=== PATIENT | female | born 1990 | race Caucasian/White ===

== ENCOUNTER 2018-09-14 16:18 | Emergency (ER) | payer SELFPAY ==
[2018-09-14 16:29] VITALS: BP 138/75
[2018-09-14] MEDS ORDERED: AZITHROMYCIN 250 MG TABLET PO ONE (16:36)
[2018-09-14] MEDS ORDERED: CEFTRIAXONE INJ 250 MG VIAL IM ONE (16:36)
[2018-09-14] MEDS ORDERED: LIDOCAINE 1% INJ-PF (10 MG/ML) 30 ML SDV INJ ONE (16:36)
--- NOTE | 2018-09-14 17:00 | ER Document Report ---
HPI - HPI Time Seen by Provider: 09/14/18 16:39 Pain Level: 0 Notes: Patient is a 28-year-old female no significant past medical history presents to the emergency department complaining of possible gonorrhea as her partner tested positive yesterday for it. She has no other concerns or complaints. She is eating and drink without difficult he. She is urinating normally and having normal bowel movements. She has not noticed any other vaginal discharge, odor, or bleeding. Denies and does not want tested. Denies drug allergies. No other concerns or complaints. Denies any headache, fever, URI, sore throat, chest pain, palpitations, syncope, cough, shortness of breath, wheeze, dyspnea, abdominal pain, nausea/vomiting/diarrhea, urinary retention, dysuria, hematuria, or rash. - ROS Systems Reviewed and Negative: Yes All other systems reviewed and negative - REPRODUCTIVE Reproductive: DENIES: : Past Medical History - Social History Smoking Status: Never Smoker Family History: Reviewed & Not Pertinent Vertical Provider Document - CONSTITUTIONAL Agree With Documented VS: Yes Notes: PHYSICAL EXAMINATION: GENERAL: Well-appearing, well-nourished and in no acute distress. LUNGS: Breath sounds clear to auscultation bilaterally and equal. No wheezes rales or rhonchi. HEART: Regular rate and rhythm without murmurs, rubs, gallops. ABDOMEN: Soft, nontender, nondistended abdomen. No guarding, no rebound. No masses appreciated. Normal bowel sounds present. No CVA tenderness bilaterally. : deferred. pt self-swabbed Musculoskeletal: FROM to passive/active. Strength 5+/5. Extremities: No cyanosis, clubbing, or edema b/l. Peripheral pulses 2+. Capillary refill less than 3 seconds. NEUROLOGICAL: Normal speech, normal gait. Normal sensory, motor exams PSYCH: Normal mood, normal affect. SKIN: Warm, Dry, normal turgor, no rashes or lesions noted. - INFECTION CONTROL TRAVEL OUTSIDE OF THE [place] IN LAST 30 DAYS: No Course - Re-evaluation Re-evalutation: 09/14/18 16:57 Patient is an afebrile, well-hydrated 28-year-old female who presents to the ED with possible gonorrhea with known exposure. Vitals are acceptable. PE is otherwise unremarkable. Patient's abdomen is soft nontender. Chlamydia gonorrhea tests are pending. Patient was given Rocephin and Zithromax. No further labs or imaging warranted at this time. Stressed the importance of follow-up with the health department for further evaluation and management. Recheck with your PCM next week as well. Return to the ED with any other worsening/concerning symptoms as reviewed. Patient is in agreement. - Vital Signs Vital signs: Temp Pulse Resp BP Pulse Ox 98.1 F 85 16 138/75 H 98 09/14/18 16:28 09/14/18 16:28 09/14/18 16:28 09/14/18 16:28 09/14/18 16:28 Discharge - Discharge Clinical Impression: Exposure to gonorrhea Condition: Stable Disposition: HOME, SELF-CARE Additional Instructions: Maintain fluid intake Proper hygienic technique Keep the skin clean Safe sexual practices with condoms everytime, and no sexual activity for 2 weeks Tylenol/ibuprofen as needed Check in with the health department this week for further testing Your chlamydia/Abdulaziz test are pending and you will be notified if positive results; you may call in 1 day for the results as well F/u with your PCM in 3-5 days for a recheck Return to the ED with any development of BRODERICK/fever, trouble with vision, eye redness, worsening pain, urethral discharge, urinary retention, blood in the urine, flank pain, abdominal pain, n/v, Chest Pain, shortness of breath, joint pains, trouble breathing, or any other worsening/concerning symptoms as needed otherwise. Forms: Elevated Blood Pressure Referrals: HEALTH DEPT,[facility] [NO LOCAL MD] - Follow up as needed
[2018-09-14 17:19] LABS: BACTERIA (WET MOUNT) 4+ BACTERIA SEEN; EPITHELIALS (WET MOUNT) 4+ EPITHELIALS SEEN; RBCS (WET MOUNT) NO RBCS SEEN; T.VAGINALIS (WET MOUNT) NO TRICHOMONAS SEEN; WBCS (WET MOUNT) 4+ WBCS SEEN; YEAST (WET MOUNT) NO YEAST SEEN
[2018-09-14 18:51] LABS: CHLAM PCR NOT DETECTED (NOT DETECT); GON PCR DETECTED (NOT DETECT)
== END 2018-09-14 17:25 | disposition home or self-care (01) ==
LOC: ER 16:18
DX: Z20.2 Contact with and (suspected) exposure to infections with a predominantly sexual mode of transmission (principal)
CPT/HCPCS: 99283; 96372; 87210; 87491; 87591; J3490; J0696